=== PATIENT | male | born 1970 | race Caucasian/White ===

== ENCOUNTER → 2018-08-06 | Outpatient (CLI) | payer BC | LOC: CARD 11:07 | PROVIDERS: ATTEND Internal Medicine Interventional Cardiology | DX: R55 Syncope and collapse (principal); I34.0 Nonrheumatic mitral (valve) insufficiency | CPT/HCPCS: 93225; 93226; 93306 ==

== ENCOUNTER 2018-08-26 11:24 | Outpatient (RCR) | payer BC ==
[2018-08-08] VITALS (27 sets, daily range): BP systolic 96–134; BP diastolic 62–95
--- NOTE | 2018-08-08 13:53 | Cardiology Tilt Table Test ---
Cardiology-Tilt Table Test Tilt Table Test Date 08/08/18 Baseline Vitals Vital Signs Date Time Temp Pulse Resp B/P (MAP) Pulse Ox O2 Delivery O2 Flow Rate FiO2 08/08/18 12:59 54 18 112/81 (91) 97 Room Air Vital Signs VS - Last 72 Hours, by Label 08/08/18 08/08/18 08/08/18 08/08/18 12:59 13:09 13:10 13:11 Pulse 54 71 74 71 Resp 18 B/P (MAP) 112/81 (91) 101/82 (88) 112/95 (101) 115/87 (96) Pulse Ox 97 97 96 98 O2 Delivery Room Air Room Air Room Air Room Air 08/08/18 08/08/18 08/08/18 08/08/18 13:12 13:13 13:14 13:15 Pulse 71 78 80 84 B/P (MAP) 110/87 (95) 106/82 (90) 101/80 (87) 111/76 (88) Pulse Ox 97 99 97 97 O2 Delivery Room Air Room Air Room Air Room Air 08/08/18 08/08/18 08/08/18 08/08/18 13:16 13:17 13:18 13:19 Pulse 80 81 17 60 B/P (MAP) 112/85 (94) 96/83 (87) 134/78 (96) Pulse Ox 96 97 97 98 O2 Delivery Room Air Room Air Room Air Room Air 08/08/18 08/08/18 08/08/18 08/08/18 13:21 13:23 13:26 13:27 Pulse 51 51 56 53 B/P (MAP) 107/62 (77) 100/68 (79) 103/68 (80) 99/67 (78) Pulse Ox 97 98 98 98 O2 Delivery Room Air Room Air Room Air Room Air 08/08/18 08/08/18 08/08/18 08/08/18 13:30 13:30 13:33 13:35 Pulse 53 55 57 52 B/P (MAP) 109/66 (80) 100/70 (80) 108/73 (85) 101/72 (82) Pulse Ox 97 98 100 98 O2 Delivery Room Air Room Air Room Air Room Air 08/08/18 13:36 Pulse 52 B/P (MAP) 104/65 (78) Pulse Ox 98 O2 Delivery Room Air Patient was tilted to 75 degrees for [10] minutes, he became significantly hypotensive and bradycardic. IV fluids were given and he was placed in supine position. During test, patient was: symptomatic In Conclusion;: Positive Tilt Table Test Significant bradycardia and hypotension with upright position without NTG. Positive tilt table test. Samantha CRAFT MD Aug 08, 2018 13:53
[~2018-08-26] VITALS: Ht 177.8 cm; Wt 86.2 kg
[~2018-08-26 11:24] MED LIST: NS IV 1000 ML 1,000 ML ONE
== END 2018-11-06 | disposition home or self-care (01) ==
LOC: CARD 11:24
PROVIDERS: ATTEND Internal Medicine Interventional Cardiology
DX: R55 Syncope and collapse (principal); R00.1 Bradycardia, unspecified; I95.9 Hypotension, unspecified
CPT/HCPCS: 93270; 93660

== ENCOUNTER → 2018-09-18 | Outpatient (CLI) | payer BC | LOC: CARD 09:50 | PROVIDERS: ATTEND Internal Medicine Interventional Cardiology | DX: R55 Syncope and collapse (principal) | CPT/HCPCS: 93017 ==